=== PATIENT | male | born 1960 | race Hispanic/Latino ===

== ENCOUNTER 2023-05-07 06:13 | Day surgery (SDC) | payer MEDICAID ==
[2023-05-05 10:32] VITALS: BP 135/82; PULSE 74; RESP 16
[2023-05-05 10:37] LABS: BASOPHILS # (AUTO) 0.07 K/uL (0.00-0.20); BASOPHILS % (AUTO) 0.9 % (0.0-5.0); EOSINOPHILS # (AUTO) 0.08 K/uL (0.00-0.70); HEMATOCRIT 40.1 % (42-54); IMMATURE GRANULOCYTE ABSOLUTE 0.06 K/uL (0-1); LYMPHOCYTES % (AUTO) 36.6 % (21.0-51.0); MEAN CORPUSCULAR HEMOGLOBIN 31.1 pg (27.0-33.0); MEAN CORPUSCULAR HGB CONC 32.7 g/dL (32.0-36.0); MEAN CORPUSCULAR VOLUME 95.2 fL (79-99); MONOCYTES # (AUTO) 0.6 K/uL (0.1-1.0); MONOCYTES % (AUTO) 7.2 % (3.0-13.0); NEUTROPHILS # (AUTO) 4.4 K/uL (1.8-7.7); NEUTROPHILS % (AUTO) 53.6 % (40.0-77.0); PLATELET COUNT (AUTO) 179 K/uL (130-400); RED BLOOD CELL COUNT(AUTO) 4.21 MIL/uL (4.50-6.20); WHITE BLOOD COUNT (AUTO) 8.2 K/uL (4.8-10.8)
[2023-05-05 10:45] LABS: CREATININE 1.3 mg/dL (0.5-1.5); POTASSIUM 4.9 mmol/L (3.5-5.1)
[2023-05-05 10:47] LABS: INR <= 0.93 (0.85-1.15); PROTHROMBIN TIME 10.5 SEC (9.6-11.6)
[2023-05-05 10:49] LABS: PARTIAL THROMBOPLASTIN TIME 27.7 SEC (26.3-35.5)
[2023-05-05 11:21] LABS: B-TYPE NATRIURETIC PEPTIDE 137 pg/mL (0-100)
[~2023-05-07] VITALS: Ht 180.3 cm; Wt 93.8 kg
[2023-05-07] VITALS (12 sets, daily range): BP systolic 98–157; BP diastolic 65–90; PULSE 57–78; RESP 15–16
[~2023-05-07 06:13] MED LIST: ATOR10 PO; CLOP-31 PO; EMPA10TA PO; INSU100V37 SQ; METF-446 PO; MIDO10TA PO
[2023-05-07] MEDS ORDERED: GLIM4TAB36 PO (06:58)
[2023-05-07] MEDS: 0.9%NACL 1000ML 1,000 ML IV ONE (07:06)
[2023-05-07] MEDS ORDERED: LIDOCAINE HCL 400MG/20ML VIAL ONE (07:09)
[2023-05-07] MEDS ORDERED: FENTANYL CITRATE PF 50 MCG/1 ML 2ML VIAL ONE ×2 (07:09→09:08)
[2023-05-07] MEDS ORDERED: NITROGLYCERIN 50MG VIAL ONE (07:10)
[2023-05-07] MEDS ORDERED: NICARDIPINE 25MG INJ IV ONE (07:10)
[2023-05-07] MEDS ORDERED: MIDAZOLAM HCL 1 MG/ML 2ML VIAL ONE ×2 (07:10→09:09)
[2023-05-07] MEDS ORDERED: IODIXANOL 320 MG/ML 100 ML VIAL ONE (07:10)
[2023-05-07] MEDS ORDERED: HEPARIN 10,000 UNIT/10ML (1,000 UNIT/ML) VIAL ONE (07:10)
[2023-05-07] MEDS ORDERED: CLOPIDOGREL 300MG TAB ONE (08:30)
[2023-05-07] MEDS ORDERED: 0.9%NACL 1000ML 1,000 ML IV SCH (10:00)
[2023-05-07] MEDS ORDERED: GLUCAGON 1MG KIT 1 MG ML IM PRN (10:00)
[2023-05-07] MEDS ORDERED: DEXTROSE 50%-WATER 50 ML DISP.SYRIN IV PRN (10:00)
== END 2023-05-07 13:45 | disposition home or self-care (01) ==
LOC: DAH 06:13
PROVIDERS: ATTEND Internal Medicine Cardiovascular Disease
DX: I70.238 Atherosclerosis of native arteries of right leg with ulceration of other part of lower leg (principal); L97.818 Non-pressure chronic ulcer of other part of right lower leg with other specified severity; E11.319 Type 2 diabetes mellitus with unspecified diabetic retinopathy without macular edema; E11.51 Type 2 diabetes mellitus with diabetic peripheral angiopathy without gangrene; I12.9 Hypertensive chronic kidney disease with stage 1 through stage 4 chronic kidney disease, or unspecified chronic kidney disease; E11.22 Type 2 diabetes mellitus with diabetic chronic kidney disease; N18.30 Chronic kidney disease, stage 3 unspecified; I95.1 Orthostatic hypotension; E78.5 Hyperlipidemia, unspecified; Z89.421 Acquired absence of other right toe(s); Z82.49 Family history of ischemic heart disease and other diseases of the circulatory system; Z79.01 Long term (current) use of anticoagulants; Z79.899 Other long term (current) drug therapy; Z79.84 Long term (current) use of oral hypoglycemic drugs; Z98.890 Other specified postprocedural states
CPT/HCPCS: 80048; 83880; 85025; 85610; 85730; 36415; 71045; 93005; 75716; 85347; 82948 ×2; C9772; C1894 ×2; C1769 ×2; C1760; C1893; C1887; C2623; C1725 ×3; J3010 ×2; J3490 ×3; J7030; J1644 ×3; J2250 ×2; A4215; A4222; A4221; A4663; A4216; A4606; A4223 ×3; 75774; 99156; 99157; Q9967

== ENCOUNTER 2024-08-07 10:41 | Emergency (ER) | payer MEDICAID ==
[~2024-08-07] VITALS: Ht 182.9 cm; Wt 86.2 kg
[2024-08-07 10:41] VITALS: BP 105/78; PULSE 78; RESP 18; TEMP 98.1
[~2024-08-07 10:41] MED LIST changes: +ASPI-1197 PO; -EMPA10TA PO; -INSU100V37 SQ; -MIDO10TA PO; +MIDO10TA3 PO
== END 2024-08-07 11:04 | disposition left against medical advice (07) ==
LOC: EDH 10:41
DX: E87.5 Hyperkalemia (principal); Z53.21 Procedure and treatment not carried out due to patient leaving prior to being seen by health care provider

== ENCOUNTER → 2024-10-08 | Outpatient (CLI) | payer MEDICAID | END | disposition home or self-care (01) | LOC: WHH 09:03 | PROVIDERS: ATTEND Family Medicine | DX: T87.89 Other complications of amputation stump (principal); E11.69 Type 2 diabetes mellitus with other specified complication; M86.8X7 Other osteomyelitis, ankle and foot; E11.42 Type 2 diabetes mellitus with diabetic polyneuropathy; E11.610 Type 2 diabetes mellitus with diabetic neuropathic arthropathy; E11.22 Type 2 diabetes mellitus with diabetic chronic kidney disease; I12.9 Hypertensive chronic kidney disease with stage 1 through stage 4 chronic kidney disease, or unspecified chronic kidney disease; N18.9 Chronic kidney disease, unspecified; E78.00 Pure hypercholesterolemia, unspecified; Y83.5 Amputation of limb(s) as the cause of abnormal reaction of the patient, or of later complication, without mention of misadventure at the time of the procedure; Z79.899 Other long term (current) drug therapy | CPT/HCPCS: 93923 ==